=== PATIENT | male | born 1955 | race African-American/Black ===

== ENCOUNTER → 2019-05-03 11:55 | Outpatient (CLI) | payer OTHER, SELFPAY ==
--- NOTE | 2019-05-03 | DI.US.S_ITS ---
PROCEDURE: US ABDOMEN LIMITED INDICATIONS: CHRONIC VIRAL HEPATITIS C TECHNIQUE: Real-time focused scanning was performed of the abdomen, with image documentation. COMPARISON: [facility], , ABDOMEN LIMITED, 02/10/2017, 8:11. FINDINGS: Normal appearance to liver. No gallstones identified. Normal gallbladder wall. No pericholecystic fluid. Negative sonographic Calderon sign. No biliary dilatation. Normal pancreas. IMPRESSION: Normal appearance to liver. Dictated by: Mal Gonzales [facility] Interpreted: Donovan Prater MD on 05/03/2019 at 14:55 Approved by: Donovan Prater M.D. on 05/04/2019 at 11:26
== END ==
PROVIDERS: Family Provider Family Medicine; PCP Family Medicine; Visit Provider Internal Medicine Gastroenterology
DX: B18.2 Chronic viral hepatitis C (principal)
CPT/HCPCS: 76705

== ENCOUNTER 2020-06-20 17:42 | Emergency (ER) | payer OTHER, SELFPAY ==
[2020-06-20] VITALS (9 sets, daily range): BP systolic 157–204; BP diastolic 88–104; PULSE 61–68; RESP 13–19; TEMP 36.6; O2SAT 98–100; BMI 25.0
--- NOTE | 2020-06-20 17:49 | DI.RAD.S_ITS ---
PROCEDURE: XR CHEST 1V INDICATIONS: chest pain TECHNIQUE: One view of the chest was acquired. COMPARISON: None. FINDINGS: Surgical changes and devices: There is a disc prosthesis at C5-C6. Lungs and pleura: Lungs are clear. No pleural effusions or pneumothorax. Mediastinum: Mediastinal contours appear normal. Heart size is normal. Bones and chest wall: No suspicious bony lesions. Overlying soft tissues appear unremarkable. IMPRESSION: No acute cardiopulmonary disease. Dictated by: Angelique Lisa M.D. on 06/20/2020 at 19:08 Approved by: Angelique Lisa M.D. on 06/20/2020 at 19:09
--- NOTE | 2020-06-20 18:00 | ED_ITS ---
HPI - Chest Pain General Chief Complaint: Chest Pain Stated Complaint: chest tightness,left arm pain Time Seen by Provider: 06/20/20 17:57 Source: patient Mode of arrival: Ambulatory Limitations: no limitations History of Present Illness HPI narrative: This is a 64-year-old male comes to emergency department with co mplaint of chest pain most recent episode started today at 1:00 p.m.. Patient states he has been having intermittently for the past week. Has pain radiating to both arms, diaphoretic, denies any shortness of breath. No nausea or vomiting. No other GI or urinary symptoms. No swelling in his extremities. Patient does not have any known coronary artery disease. Patient does have a history of hepatitis-C which he recently completed treatment for. He is not currently taking any other medications. States his prior neck surgery carpal tunnel. Denies allergies to medication. Use THC intermittently. He is accompanied by his today. Related Data Allergies Allergy/AdvReac Type Severity Reaction Status Date / Time No Known Drug Allergies Allergy Verified 06/20/20 17:49 Review of Systems Review of Systems ROS Unobtainable: All systems reviewed & are unremarkable except as noted in HPI and below Patient History Social History Smoking Status: Current every day smoker Smoking Status: Current every day smoker tobacco type: cigarettes Substance Use Type: does not use Exam Narrative Exam Narrative: GENERAL: Alert and oriented x three, well-nourished, well- appearing male in mild distress. HEENT: Head normocephalic, atraumatic, EOMI, pupils reactive, face symmetric, moist mucous membranes NECK: Supple, full range of motion CARDIOVASCULAR: Regular rate and rhythm without murmurs, rubs or gallops. RESPIRATORY: Breath sounds equal bilaterally, no wheezes rales or rhonchi. ABDOMEN: Soft, nontender. Normoactive bowel sounds all 4 quadrants. No guarding or rebound, rigidity, no mass : No CVA tenderness EXTREMITIES: Normal range of motion, no clubbing or edema. Neurovascularly intact NEUROLOGICAL: Cranial nerves II through XII grossly intact. Moving all extremities SKIN: Warm, dry, no petechiae, no rashes or lesions. Initial Vital Signs Initial Vital Signs: Vital Signs Temperature 97.8 F 06/20/20 17:44 Pulse Rate 64 06/20/20 17:44 Respiratory Rate 16 06/20/20 17:44 Blood Pressure 204/104 H 06/20/20 17:44 Pulse Oximetry 100 06/20/20 17:44 Course Orders Ordered: ED Orders 06/20/20 17:49 XR chest 1V Stat EKG-12 Lead Stat 06/20/20 17:56 Complete Blood Count MAN DIFF Stat Comprehensive Metabolic Panel Stat Lipase Stat Partial Thromboplastin Time Stat Prothrombin Time INR Stat Troponin & CK Cardiac Panel Stat 06/20/20 18:04 COVID19 Stat Discontinued Medications Aspirin (Aspirin 81 Mg Chew Tab) 324 mg PO NOW ONE Stop: 06/20/20 17:58 Last Admin: 06/20/20 18:07 Dose: 324 mg Documented by: ARY Heparin Sodium (Porcine) (Heparin 5,000 Unit/Ml Vial) 4,000 unit IV NOW ONE Stop: 06/20/20 17:58 Last Admin: 06/20/20 18:06 Dose: 4,000 unit Documented by: ARY Heparin Sodium/Dextrose (Heparin Drip) 25,000 unit in 500 mls @ 18.942 mls/hr IV CONT MARIO; Protocol Last Admin: 06/20/20 18:06 Dose: 12 units/kg/hr, 18.942 mls/hr Documented by: ARY Nitroglycerin (Nitroglycerin 0.4 Mg Sl Tab) 0.4 mg SL [id number] PRN PRN Reason: pain Last Admin: 06/20/20 18:14 Dose: 0.4 mg Documented by: Admin: 06/20/20 18:11 Dose: 0.4 mg Documented by: Admin: 06/20/20 18:07 Dose: 0.4 mg Documented by: ARY Consultations Consultation #1: Spoke with Dr. Hendrix from [facility] who accepts for transfer for STEMI, EKG faxed. Starting ASA, nitro and heparin in Emergency department. Time: 18:04 Vital Signs Vital signs: Vital Signs - 8 hr 06/20/20 17:44 06/20/20 18:00 06/20/20 18:01 Temperature 97.8 F Pulse Rate 64 62 61 Respiratory Rate 16 14 13 Blood Pressure 204/104 H 185/102 H Pulse Oximetry 100 100 100 06/20/20 18:05 06/20/20 18:07 06/20/20 18:10 Temperature Pulse Rate 65 62 68 Respiratory Rate 13 17 Blood Pressure 185/102 H Pulse Oximetry 100 100 06/20/20 18:11 06/20/20 18:14 06/20/20 18:15 Temperature Pulse Rate 67 66 63 Respiratory Rate 15 19 Blood Pressure 166/100 H 166/100 H 157/88 H Pulse Oximetry 100 98 MDM - Chest Pain Lab Data Result diagrams: 06/20/20 17:56 06/20/20 17:56 Labs: Lab Results 06/20/20 06/20/20 06/20/20 Range/Units 17:56 17:56 17:56 WBC Cancelled RBC Cancelled Hgb Cancelled Hct Cancelled MCV Cancelled MCH Cancelled MCHC Cancelled RDW Cancelled Plt Count Cancelled Neut % (Auto) Cancelled Lymph % (Auto) Cancelled Greer % (Auto) Cancelled Eos % (Auto) Cancelled Baso % (Auto) Cancelled Neut # (Auto) Cancelled Lymph # (Auto) Cancelled Greer # (Auto) Cancelled Eos # (Auto) Cancelled Baso # (Auto) Cancelled Total Counted Seg Neutrophils % (38-70) % Band Neutrophils % (3-7) % Lymphocytes % (Manual) (25-45) % Monocytes % (Manual) (2-11) % Eosinophils % (Manual) (2-4) % Neutrophils # (Manual) (1669-2154) /uL RBC Morphology Anisocytosis PT 12.7 (10.1-12.7) SECONDS INR 1.1 (0.9-1.3) APTT 34 (26.4-36.2) SECONDS Sodium 140 (137-145) mmol/L Potassium 3.8 (3.4-5.1) mmol/L Chloride 104 (98-107) mmol/L Carbon Dioxide 31 (22-32) mmol/L BUN 16 (9-20) mg/dL Creatinine 1.13 (0.66-1.25) mg/dL Estimated GFR > 60.0 (>60) mL/min BUN/Creatinine Ratio 14.2 (6-22) Glucose 111 H (80-110) mg/dL Calcium 9.1 (8.4-10.2) mg/dL Total Bilirubin 0.3 (0.2-1.3) mg/dL AST 100 H (17-59) IU/L ALT 35 (<50) IU/L Alkaline Phosphatase 96 (38-126) U/L Total Creatine Kinase 804 H (55-170) U/L CK-MB (CK-2) 30.20 H (<2.37) ng/mL CK-MB (CK-2) Rel Index 3.8 (1.5-5.0) % Troponin I 2.040 H* (0.01-0.034) ng/mL Total Protein 8.0 (6.3-8.2) g/dL Albumin 4.3 (3.5-5.0) g/dL Globulin 3.7 (1.7-4.1) g/dL Albumin/Globulin Ratio 1.2 (1.0-2.8) Lipase 179 (23-300) U/L COVID-19 PCR (Negative) 06/20/20 06/20/20 06/20/20 Range/Units 17:56 17:56 18:04 WBC 8.8 RBC 4.35 L Hgb 13.3 L Hct 39.7 L MCV 91.3 MCH 30.7 MCHC 33.6 RDW 14.9 H Plt Count 153 Neut % (Auto) Lymph % (Auto) Greer % (Auto) Eos % (Auto) Baso % (Auto) Neut # (Auto) Lymph # (Auto) Greer # (Auto) Eos # (Auto) Baso # (Auto) Total Counted 100 Seg Neutrophils % 79.0 H (38-70) % Band Neutrophils % 2.0 L (3-7) % Lymphocytes % (Manual) 11.0 L (25-45) % Monocytes % (Manual) 6.0 (2-11) % Eosinophils % (Manual) 2.0 (2-4) % Neutrophils # (Manual) 7128 H (8995-3550) /uL RBC Morphology Not Reportable Anisocytosis 1+ H PT (10.1-12.7) SECONDS INR (0.9-1.3) APTT (26.4-36.2) SECONDS Sodium Cancelled (137-145) mmol/L Potassium Cancelled (3.4-5.1) mmol/L Chloride Cancelled (98-107) mmol/L Carbon Dioxide Cancelled (22-32) mmol/L BUN Cancelled (9-20) mg/dL Creatinine Cancelled (0.66-1.25) mg/dL Estimated GFR Cancelled (>60) mL/min BUN/Creatinine Ratio Cancelled (6-22) Glucose Cancelled (80-110) mg/dL Calcium Cancelled (8.4-10.2) mg/dL Total Bilirubin Cancelled (0.2-1.3) mg/dL AST Cancelled (17-59) IU/L ALT Cancelled (<50) IU/L Alkaline Phosphatase Cancelled (38-126) U/L Total Creatine Kinase Cancelled (55-170) U/L CK-MB (CK-2) Cancelled (<2.37) ng/mL CK-MB (CK-2) Rel Index Cancelled (1.5-5.0) % Troponin I Cancelled (0.01-0.034) ng/mL Total Protein Cancelled (6.3-8.2) g/dL Albumin Cancelled (3.5-5.0) g/dL Globulin Cancelled (1.7-4.1) g/dL Albumin/Globulin Ratio Cancelled (1.0-2.8) Lipase (23-300) U/L COVID-19 PCR Negative (Negative) Imaging Data Chest x-ray: Attestation: I personally reviewed and interpreted this imaging study as follows: My Impression: cardiomegaly, no acute process otherwise appreciated. ECG Data Attestation: I personally reviewed and interpreted this ECG as follows: Interpretation: Normal sinus rhythm. Patient has depression in 1 and aVL, some mild depression in V5 V6. He does have elevation in leads 3 and AVF. [facility] Narrative Medical decision making narrative: This is a 64-year-old male comes in with complaint of chest pain. Patient has ST elevation with reciprocal changes on EKG. STEMI is called. Spoke with Dr. Hendrix at [facility] who accepts for transfer. Aspirin, heparin and nitro were given. Patient's pressure improved but chest pain had minimal to no improvement. Labs are currently pending, chest x-ray was reviewed patient has cardiomegaly but no widening of the mediastinum. Patient was swabbed for covid. Critical Care Time Critical Care Time Critical Care Time: Yes Total Critical Care Time: 35 Attestation: The high probability of a clinically significant, sudden or life threatening deterioration of the [cardiac] system(s) required my full and direct attention, intervention and personal management. The aggregate critical care time was [] minutes. This time is in addition to time spent performing reported procedures but includes the following: [x] Data Review and interpretation [x] Patient assessment and monitoring of vital signs [x] Documentation [x] Medication orders and management Discharge Plan Departure Patient Disposition: [facility] Clinical Impression: ST elevation [place] (STEMI) Referrals: Morro Benoit MD [Primary Care Provider] -
[2020-06-20] MEDS: HEPARIN 5,000 UNIT/ML VIAL 4000 UNIT IV (18:06)
[2020-06-20] MEDS: HEPARIN DRIP 25,000 UNIT/500 ML IV.SOLN 18.942 UNIT IV (18:06)
[2020-06-20] MEDS: ASPIRIN 81 MG CHEW TAB 324 MG PO (18:07)
[2020-06-20] MEDS: NITROGLYCERIN 0.4 MG SL TAB SL ×3 (18:07→18:14)
[2020-06-20 18:13] LABS: Hematocrit 39.7 % (41-53); Hemoglobin 13.3 g/dL (13.5-17.5); Mean Corpuscular HGB Conc 33.6 % (30-36); Mean Corpuscular Hemoglobin 30.7 PG (26-34); Mean Corpuscular Volume 91.3 fL (80-100); Platelet Count 153 X10^3/uL (150-400); Red Blood Cell Count 4.35 X10^6/uL (4.5-5.9); Red Cell Distribution Width 14.9 % (11.6-14.8); White Blood Cell Count 8.8 X10^3/uL (4.5-11.0)
[2020-06-20 18:21] LABS: INR 1.1 (0.9-1.3); Prothrombin Time 12.7 SECONDS (10.1-12.7)
[2020-06-20 18:23] LABS: PTT Partial Thromboplastin Tim 34 SECONDS (26.4-36.2)
[2020-06-20 18:25] LABS: Alanine Aminotransferase 35 IU/L (<50); Albumin 4.3 g/dL (3.5-5.0); Albumin Globulin Ratio 1.2 (1.0-2.8); Alkaline Phosphatase 96 U/L (38-126); Aspartate Aminotransferase 100 IU/L (17-59); BUN Creatinine Ratio 14.2 (6-22); Bilirubin Total 0.3 mg/dL (0.2-1.3); Blood Urea Nitrogen 16 mg/dL (9-20); Calcium 9.1 mg/dL (8.4-10.2); Carbon Dioxide 31 mmol/L (22-32); Chloride 104 mmol/L (98-107); Creatine Kinase 804 U/L (55-170); Estimated Glomerular Filt Rate > 60.0 mL/min (>60); Globulin 3.7 g/dL (1.7-4.1); Glucose 111 mg/dL (80-110); HEMOLYSIS < 15 (0-50); Lipase 179 U/L (23-300); Potassium 3.8 mmol/L (3.4-5.1); Sodium 140 mmol/L (137-145)
[2020-06-20 18:40] LABS: CKMB % Relative Index 3.8 % (1.5-5.0)
[2020-06-20 18:46] LABS: COVID19 -Nasal RAPID Negative (Negative)
[2020-06-20 19:20] LABS: Total Cells Counted 100
[2020-06-20 19:22] LABS: Neutrophils Absolute Manual 7128 /uL (3000-5900)
[2020-06-20 19:23] LABS: Anisocytosis 1+
== END 2020-06-20 18:21 | disposition short-term general hospital (02) ==
PROVIDERS: Emergency Medicine; Emergency Provider Emergency Medicine; Family Provider Family Medicine; PCP Family Medicine
DX: I21.3 ST elevation (STEMI) myocardial infarction of unspecified site (principal); Z20.828 Contact with and (suspected) exposure to other viral communicable diseases
CPT/HCPCS: 36415; 71045; 80053; 82550; 82553; 83690; 84484; 85025; 85610; 85730; 87635; 93005; 93010; 96374; 96375; 99283; 99291; J1644

== ENCOUNTER 2021-02-20 08:30 | Outpatient (RCR) | payer OTHER, SELFPAY ==
--- OUTSIDE RECORDS SUMMARY | 2020-10-22 08:40 | XMS_ITS | Referral Summary ---
:[address] [facility] Address [address] [place] [address] Care Team Providers Name Role Phone MD Cong Primary Care Provider Reason for Referral Hospital - Outpatient (Routine) Status Reason Specialty Diagnoses / Procedures Referred By C ontact Referred To Contact Closed Cardiology Diagnoses S/P drug eluting coronary stent placement [facility] [address] [place] [address] [address] [id number] [place], [place] Phone: [phone] Phone: Electronically signed by Davis Madrid MD at Encounter Details Date Type Department Care Team Description 10/09/2020 Telephone [facility] Davis Madrid MD Cardiology [address] [place], [place] [phone] [place], [place] [id number] Allergies No Known Active Allergiesdocumented as of this encounter (statuses as of 10/21/2020) Medications Medication Sig Dispensed Refills Start Date End Date Status acetaminophen Take 650 mg by 0 A ctive (TYLENOL) 325 mg mouth daily tablet aspirin 81 mg chewable Take 1 tablet 30 tablet 11 06/23/2020 Active tablet (81 mg total) by mouth daily nitroglycerin Place 1 tablet 90 tablet 0 06/22/2020 06/22/2021 Active (NITROSTAT) 0.4 mg SL (0.4 mg total) tabletIndications: under the chest pain tongue every 5 (five) minutes as needed for chest pain Indications: chest pain If more than one dose required, call 911 or go to ER metoprolol tartrate Take 1 tablet 180 tablet 4 08/08/202010/05 Active (LOPRESSOR) 25 mg (25 mg total) tabletIndications: by mouth 2 Coronary artery (two) times a disease involving [place] coronary artery of [place] heart without angina pectoris lisinopriL (PRINIVIL) Take 1 tablet 90 tablet 4 08/08/2020 Active 10 mg (10 mg total) tabletIndications: by mouth daily Coronary artery disease involving [place] coronary artery of [place] heart without angina pectoris clopidogreL (PLAVIX) Take 1 tablet 90 tablet 4 08/08/202010/05 Active 75 mg (75 mg total) tabletIndications: by mouth daily Coronary artery disease involving [place] coronary artery of [place] heart without angina pectoris atorvastatin (LIPITOR) Take 1 tablet 90 tablet 4 08/08/2020 Active 40 mg (40 mg total) tabletIndications: by mouth Coronary artery nightly disease involving [place] coronary artery of [place] heart without angina pectoris documented as of this encounter (statuses as of 10/21/2020) Active Problems Problem Noted Date Coronary artery disease involving [place] coronary win ry of [place] heart 08/08/2020 without angina pectoris Last Assessment & Plan: Coronary artery disease is newly identified in 06/2020 with inferolateral STEMI. Continue current treatment regimen. Continue current medications. Cardiac status will be reassessed in [address] [facility] elevation myocardial infarction involving left circ umflex coronary 06/22/2020 artery S/P drug eluting coronary stent placement 06/22/2020 Last Assessment & Plan: DAPT for 1 year. RTC in 6 months. Tobacco use disorder 06/22/2020 Microcytic anemia 06/22/2020 Chronic hepatitis C virus infection 02/02/2017 documented as of this encounter (statuses as of 10/21/2020) Social History Tobacco Use Types Packs/Day Years Used Date Light Tobacco Smoker Cigarettes 0.75 30 Smokeless Tobacco: Never Used Comments: Currently smokes 2 Black Milds a day. Alcohol Use Drinks/Week oz/Week Comments Yes Alcohol Habits Answer Date Recorded How often do you have a drink containing alcohol? Monthly or less 06/21/2020 How many drinks containing alcohol do you have on a Not aske d 06/21/2020 typical day when you are drinking? How often do you have six or more drinks on one Not asked 06/21/2020 occasion? Sex Assigned at Date Recorded Not on file Job Start Date Occupation Industry Not on file Not on file Not on file documented as of this encounter Miscellaneous Notes Telephone Encounter - Erica Ortiz - 10/21/2020 1:26 PM PDTI called [facility] and they have what they need for him. His auth was approved and they have that information. Telephone Encounter - Joan Koch - 10/16/2020 9:14 AM PDTAmanda calling from [facility] requesting update on Referral and Auth with [facility]. He is currently on the schedule for 10/29, she is concerned about having to reschedule him. Please follow up with her at [phone]. Thank you elephone Encounter - Aracely Kimble - 10/09/2020 1:16 PM PDTReceived cardiac rehab form. Emailed to Kiana documented in this encounter Plan of Treatment Scheduled Referrals Name Type Priority Associated Order Schedule Diagnoses XTRNL Referral to Outpatient Referral Routine S/P drug eluting Ordered: Cardiac Rehabilitation coronary stent placement documented as of this encounter Implants Implanted Type Area Ear Pull Machine Operator Device Identifier Shelf Exp iration Model / Date Serial / L ot Stent Xience Ute 2.50*15 - [id number] / Implanted: Qty: 1 on 06/20/2020 at [facility] / documented as of this encounter Visit Diagnoses Diagnosis S/P drug eluting coronary stent placemen t - Primary documented in this encounter Insurance Payer Benefit Plan / Subscriber ID Effective Dates Phone Addre ss Type Group [facility] [id number] 2019-Present [employer] [facility] documented as of this encounter Advance Directives Documents on File Type Date 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
== END 2021-02-20 11:55 ==
LOC: CAR 08:30
PROVIDERS: Family Provider Family Medicine; PCP Family Medicine; Referring Provider Internal Medicine Cardiovascular Disease; Visit Provider Internal Medicine Cardiovascular Disease
DX: Z95.5 Presence of coronary angioplasty implant and graft (principal); I21.21 ST elevation (STEMI) myocardial infarction involving left circumflex coronary artery
CPT/HCPCS: 93798

== ENCOUNTER → 2021-05-09 11:24 | Outpatient (CLI) | payer OTHER, SELFPAY ==
[2021-05-09 13:03] LABS: COVID19 -Nasal RAPID Negative (Negative)
== END ==
PROVIDERS: Family Provider Family Medicine; PCP Family Medicine; Visit Provider Physician Assistant
DX: Z20.822 Contact with and (suspected) exposure to COVID-19 (principal)
CPT/HCPCS: 87635

== ENCOUNTER → 2021-05-12 08:59 | Outpatient (CLI) | payer OTHER, SELFPAY ==
--- NOTE | 2021-05-13 13:51 | DI.NM.S_ITS ---
PROCEDURE PERFORMED: Exercise treadmill, converted to pharmacologic vasodilator stress and rest perfusion study with gating to assess ejection fraction and regional wall motion. DATE OF SERVICE: May 12, 2021 ORDERING PROVIDER: Davis Madrid Jr MD INDICATIONS: The patient is a 65-year-old male with a history of left circumflex revascularization, who now presents with progressive exertional angina. CARDIAC STRESS: The patient was initially stressed by treadmill and was able to complete 6 minutes 20 seconds of a standard Demetrio protocol, achieving 6.2 METS suggesting moderately reduced exercise capacity with an MICAH of +28%. He had a blunted heart rate response, achieving a maximum heart rate of 107 BPM (69% of his predicted maximum), but had a normal blood pressure response. He developed his usual chest discomfort after 3 minutes of exercise. His resting ECG showed sinus rhythm with inferolateral ST-segment abnormality that remained unchanged with stress. He had frequent PACs but no complex ectopy. Because of the inability to reach his target heart rate, he was given regadenoson 0.4 mg, augmented with low level walking. He had a normal hemodynamic response, again without any significant ST-segment shifts or concerning arrhythmias. Per protocol, he was injected with 26.5 millicuries of technetium-99m Myoview and was imaged 15 minutes later using a gated SPECT acquisition protocol. The day prior he had been injected with 25.1 millicuries of technetium-99m Myoview and was imaged 30 minutes later, again using a gated SPECT acquisition protocol. FINDINGS: RAW DATA: There is fairly good myocardial tracer uptake. Lung/heart ratio is normal at 0.32. TID ratio is normal at 1.03. QUANTITATED GATED SPECT: Post-stress ejection fraction is estimated at 60% without any obvious focal wall motion abnormality although image quality is slightly poor. Resting ejection fraction is calculated at 51% although visually appears quite similar to that of the post-stress ejection fraction. Left ventricular volumes are mildly increased with a resting end-diastolic volume of 173 mL. MYOCARDIAL PERFUSION IMAGING: Post-stress supine images show a fairly extensive moderate perfusion defect in the proximal to mid inferior, inferolateral, and lateral [place], extending somewhat into the anterolateral wall. This defect persists on the prone images suggesting it reflects a true perfusion defect. The resting images again show a mild perfusion defect in the proximal inferolateral segment but it appears significantly improved, being considerably smaller and less severe in intensity compared to the post- stress images. IMPRESSION: 1. Abnormal myocardial perfusion study. 2. Predominantly reversible but mildly fixed inferior, inferolateral, and lateral perfusion defect suggesting probable significant ischemia in the left circumflex distribution, possibly with some degree of intermixed nontransmural infarction. 3. Normal left ventricular systolic function without any obvious focal wall motion abnormality. Left ventricular volumes are mildly increased. 4. Moderately reduced exercise capacity with a mildly blunted chronotropic response with provokable chest discomfort, but no ECG changes of ischemia. Uziel Candelario - RS/ignacia/cs doc#: [id number]/job#: [id number] dd: 05/13/2021 13:11:00 dt: 05/13/2021 13:41:00 DICTATING MD/COPIES TO: Miller Kaminski MD; Davis Madrid Jr MD COPIES MNE: [id number];
== END ==
PROVIDERS: Family Provider Family Medicine; PCP Family Medicine; Referring Provider Internal Medicine Cardiovascular Disease; Visit Provider Internal Medicine Cardiovascular Disease
DX: I25.118 Atherosclerotic heart disease of native coronary artery with other forms of angina pectoris (principal); I34.0 Nonrheumatic mitral (valve) insufficiency; I77.89 Other specified disorders of arteries and arterioles
CPT/HCPCS: 78452; 93017; A9502; J2785

== ENCOUNTER → 2021-05-13 09:14 | Outpatient (CLI) | payer OTHER, SELFPAY ==
--- NOTE | 2021-05-13 | DI.ECHO.S_ITS ---
[facility] +---------+ : : [address] : : : : [phone] : : : : Phone: [phone]+ Echocardiogram Report + + :Name: NJ GATICA Study Date: 05/13/2021 Height: 70 in : :[facility] ReadingLocation: Weight: 172 lb : : Gender: Male BSA: 2.0 m2 : :: 1955 Age: 65 yrs BP: 160/90 mmHg: :Reason For Study: ATHEROSCLEROTIC HEART DISEASE OF [place] : :CORONARY ARTERY : :Ordering Physician: DOM, : :DAVIS Performed By: Shaina Flores : :Referring: DAVIS MADRID : + + Interpretation Summary There is mild-moderate concentric left ventricular hypertrophy. Left ventricular systolic function is normal. The ejection fraction is estimated to be 55-60%. Diastolic parameters suggest probable normal left ventricular diastolic function and normal filling pressures. The right ventricle is normal in size and function. Pulmonary artery pressures cannot be estimated because of the lack of a measurable TR jet velocity but the IVC suggests a CVP of around 8 mmHg. The left atrium is moderately dilated. The right atrium is mildly dilated. There is mild mitral regurgitation. There is no other significant valvular heart disease. The ascending aorta is mildly enlarged. Procedure: A two-dimensional transthoracic echocardiogram with color flow and Doppler was performed. The study quality was technically good. Comparison is made with the echocardiogram of 06/21/2020. The patient was in sinus bradycardia with heart rates between 49-72 bpm during the exam. Left Ventricle: The left ventricle is normal in size. There is mild-moderate concentric left ventricular hypertrophy. Left ventricular systolic function is normal. The ejection fraction is estimated to be 55-60%. Proximal inferior and inferolateral wall segments are hypokinetic. Diastolic parameters suggest probable normal left ventricular diastolic function and normal filling pressures. Right Ventricle: The right ventricle is normal in size and function. Atria: The left atrium is moderately dilated. The right atrium is mildly dilated. There is no Doppler evidence for an interatrial shunt. Mitral Valve: The mitral valve is normal in structure and function. There is mild mitral regurgitation. Aortic Valve: The aortic valve is trileaflet. The aortic valve opens well. There is no aortic valve stenosis. There is trace aortic regurgitation. Tricuspid Valve: The tricuspid valve is normal in structure and function. Pulmonary artery pressures cannot be estimated because of the lack of a measurable TR jet velocity but the IVC suggests a CVP of around 8 mmHg. Pulmonic Valve: The pulmonic valve leaflets are thin and pliable; valve motion is normal. There is trace pulmonic regurgitation. There is no other significant valvular heart disease. Great Vessels: The aortic root is normal size. The ascending aorta is mildly enlarged. The IVC is dilated (diameter is greater than 2.1 cm) yet it collapses greater than 50% with a sniff. This suggests a right atrial pressure of 8 mm Hg. Pericardium/ Pleura There is no pericardial effusion. There is no pleural effusion. MMode/2D Measurements & Calculations LVIDd: 5.1 cm LVOT diam: 2.1 cm LVIDs: 4.1 cm Ao root diam: 3.3 cm FS: 20.6 % asc Aorta Diam: 3.7 cm IVSd: 1.5 cm LVPWd: 1.1 cm LV gunderson. diameter/BSA (cm/m^2): 2.6 LV sys. diameter/BSA (cm/m^2): 2.1 LA A2 area: 27.1 cm2 RA long axis: 5.8 cm LA A4 area: 24.3 cm2 RA area: 22.7 cm2 LA length (vol): 5.8 cm RA vol: 75.1 ml LA vol: 95.6 ml RA : 38.4 ml/m2 LA vol index: 48.8 ml/m2 IVC diam: 2.1 cm RVD1 (basal): 3.6 cm TAPSE: 2.7 cm Doppler Measurements & Calculations Ao V2 max: 164.5 cm/sec LVOT Max Felix: 97.1 cm/sec Ao V2 mean: 108.1 cm/sec LV V1 max P.8 mmHg Ao max P.8 mmHg LV V1 VTI: 21.1 cm Ao mean P.4 mmHg OLLIE(I,D): 2.3 cm2 Ao V2 VTI: 31.3 cm OLLIE(V,D): 2.0 cm2 sev ratio: 0.68 OLLIE indexed to BSA (cm^2/m^2): 1.2 MV E max felix: 99.0 cm/sec PA V2 max: 101.7 cm/sec MV A max felix: 83.8 cm/sec PA V2 mean: 73.5 cm/sec MV E/A: 1.2 PA mean P.4 mmHg Med Peak E' Felix: 5.7 cm/sec PA pr(Accel): 20.8 mmHg E/E' med: 17.5 Lat Peak E' Felix: 8.7 cm/sec E/E' lat: 11.4 E/e' average: 14.4 MV dec time: 0.21 sec SV(LVOT): 73.4 ml Reading Physician:06:19 PM
== END ==
PROVIDERS: Family Provider Family Medicine; PCP Family Medicine; Referring Provider Internal Medicine Cardiovascular Disease; Visit Provider Internal Medicine Cardiovascular Disease
DX: I34.0 Nonrheumatic mitral (valve) insufficiency (principal); I77.89 Other specified disorders of arteries and arterioles; I25.10 Atherosclerotic heart disease of native coronary artery without angina pectoris
CPT/HCPCS: 93306

== ENCOUNTER 2023-03-25 15:35 | Emergency (ER) | payer OTHER, SELFPAY ==
[2023-03-25 15:42] VITALS: BP 178/110; PULSE 74; RESP 16; O2SAT 95
[2023-03-25 15:53] VITALS: BP 182/118; PULSE 83; RESP 12; O2SAT 97; BMI 24.7
[2023-03-25 16:00] VITALS: BP 182/105; PULSE 81; RESP 16; O2SAT 97
--- NOTE | 2023-03-25 16:01 | ED.CHESTPAIN ---
HPI - Chest Pain General Chief Complaint: Chest Pain Stated Complaint: Chest Pain Time Seen by Provider: 03/25/23 15:57 Source: EMS Mode of arrival: Ambulatory History of Present Illness HPI narrative: Patient brought in by ambulance from work for chest pain patient had STEMI last year and had stent placed. Patient sees Dr. Madrid with [facility]. patient has had off and on chest pain for the past 1 week and worsened today at work. Patient given aspirin and nitroglycerin by EMS. Patient states pain has improved. EKG does show acute NV. Lateral leads ST elevation with reciprocal changes in the inferior leads. Code STEMI activated. Patient needs to be transferred to [facility] Emergency Department and cardiac catheterization lab. Related Data Allergies Allergy/AdvReac Type Severity Reaction Status Date / Time No Known Drug Allergies Allergy Verified 06/20/20 17:49 Review of Systems Review of Systems Narrative: GENERAL: negative chills, fatigue, malaise, fever, sweats. HEENT: negative sinus pain, ear pain, sore throat RESPIRATORY: negative dyspnea, cough CARDIOVASCULAR: Positive chest pain, negative palpitations GASTROINTESTINAL: negative nausea, vomiting, abdominal pain : negative dysuria, frequency, hematuria MUSCULOSKELETAL: negative muscle or bony pain SKIN: negative rash, skin lesions NEUROLOGIC: negative weakness, numbness ROS Unobtainable: All systems reviewed & are unremarkable except as noted in HPI and below Patient History Social History Smoking Status: Current every day smoker Smoking Status: Current every day smoker tobacco type: cigarettes Substance Use Type: does not use Exam Narrative Exam Narrative: GENERAL: in no distress, not toxic not dyspneic HEAD: Normocephalic. EYES: Pupils equal round ENT: Mucous membranes moist. NECK: Trachea midline. CARDIOVASCULAR: Regular rate and rhythm RESPIRATORY: Clear to auscultation. Breath sounds equal bilaterally. No wheezes, rales, or rhonchi. GASTROINTESTINAL: Abdomen soft, non-tender EXTREMITIES: No gross deformities. BACK: No flank tenderness. NEURO: AOx4. Clear speech. No altered mental status. SKIN: Warm and dry PSYCH: Not anxious, is cooperative Initial Vital Signs Initial Vital Signs: Vital Signs Pulse Rate 74 03/25/23 15:42 Respiratory Rate 16 03/25/23 15:42 Blood Pressure 178/110 H 03/25/23 15:42 Pulse Oximetry 95 03/25/23 15:42 Oxygen Delivery Method Room Air 03/25/23 15:42 Course Orders Ordered: Discontinued Medications Heparin Sodium (Porcine) (Heparin 5,000 Unit/Ml Vial) 4,000 unit IV NOW ONE Stop: 03/25/23 15:58 Last Admin: 03/25/23 16:10 Dose: 4,000 unit Documented By: ADELINE Heparin Sodium/Dextrose (Heparin Drip) 25,000 unit in 500 mls @ 18.724 mls/hr IV CONT MARIO; Protocol Last Titration: 03/25/23 16:25 Dose: Infused Documented By: MARCOS Co-signed By: CHON Admin: 03/25/23 16:15 Dose: 12 units/kg/hr, 18.724 mls/hr Documented By: ADELINE Co-signed By: MARCOS Sodium Chloride (Normal Saline 0.9%) 1,000 mls @ 150 mls/hr IV CONT MARIO Last Infusion: 03/25/23 16:26 Dose: Infused Documented By: Admin: 03/25/23 16:08 Dose: 150 mls/hr Documented By: ADELINE Nitroglycerin (Nitroglycerin) 50 mg in 250 mls @ 1.5 mls/hr IV TITRATE MARIO; Protocol Last Titration: 03/25/23 16:25 Dose: Infused Documented By: Admin: 03/25/23 16:14 Dose: 5 mcg/min, 1.5 mls/hr Documented By: ADELINE Metoprolol Tartrate (Metoprolol Tartrate 5 Mg/5 Ml Inj) 5 mg IV NOW ONE Stop: 03/25/23 15:58 Last Admin: 03/25/23 16:05 Dose: 5 mg Documented By: ADELINE Vital Signs Vital signs: Vital Signs - 8 hr 03/25/23 15:53 03/25/23 16:14 03/25/23 16:09 Pulse Rate 83 76 78 Respiratory Rate 12 15 Blood Pressure 182/118 H 177/91 H 177/91 H Pulse Oximetry 97 97 Oxygen Delivery Method Room Air Room Air MDM - Chest Pain Lab Data 03/25/23 16:00 03/25/23 16:00 Labs: Lab Results 03/25/23 Range/Units 16:00 WBC 6.1 (4.5-11.0) X10^3/uL RBC 4.25 L (4.5-5.9) X10^6/uL Hgb 13.1 L (13.5-17.5) g/dL Hct 39.3 L (41-53) % MCV 92.5 (80-100) fL MCH 30.9 (26-34) PG MCHC 33.4 (30-36) % RDW 15.3 H (11.6-14.8) % Plt Count 138 L (150-400) X10^3/uL Neut % (Auto) 71.6 (50-75) % Lymph % (Auto) 19.1 L (25-40) % Pettis % (Auto) 7.9 (3-14) % Eos % (Auto) 0.6 L (2-4) % Baso % (Auto) 0.8 (0-2) % Neut # (Auto) 4400 (4050-8401) /uL Lymph # (Auto) 1200 (8420-1833) /uL Pettis # (Auto) 500 (0-900) /uL Eos # (Auto) 0 (0-450) /uL Baso # (Auto) 0 (0-100) /uL PT 14.0 H (10.1-12.7) SECONDS INR 1.2 (0.9-1.3) APTT 36 (26-36) SECONDS Sodium 138 (137-145) mmol/L Potassium 3.7 (3.4-5.1) mmol/L Chloride 103 (98-107) mmol/L Carbon Dioxide 28 (22-32) mmol/L BUN 15 (9-20) mg/dL Creatinine 1.34 H (0.66-1.25) mg/dL Estimated GFR 58 L (>60) mL/min BUN/Creatinine Ratio 11.2 (6-22) Glucose 116 H (80-110) mg/dL Calcium 8.9 (8.4-10.2) mg/dL Total Bilirubin 0.4 (0.2-1.3) mg/dL AST 29 (17-59) IU/L ALT 20 (<50) IU/L Alkaline Phosphatase 98 (38-126) U/L Total Creatine Kinase 177 H (55-170) U/L Troponin I 0.047 H (0.01-0.034) ng/mL Total Protein 7.2 (6.3-8.2) g/dL Albumin 4.0 (3.5-5.0) g/dL Globulin 3.2 (1.7-4.1) g/dL Albumin/Globulin Ratio 1.3 (1.0-2.8) MDM Narrative Medical decision making narrative: Patient brought in by ambulance from work for chest pain patient had STEMI last year and had stent placed. Patient sees Dr. Madrid with [facility]. patient has had off and on chest pain for the past 1 week and worsened today at work. Patient given aspirin and nitroglycerin by EMS. Patient states pain has improved. EKG does show acute NV. Lateral leads ST elevation with reciprocal changes in the inferior leads. Code STEMI activated. Patient needs to be transferred to [facility] Emergency Department and cardiac catheterization lab. After history and exam EKG, transfer [facility] emergency department. CBC CMP troponin chest x-ray nitroglycerin drip metoprolol MDM CC: Chest pain Complicating co-morbidities: History of STEMI Data collected from: Patient Medical records reviewed: June 20, 2020 STEMI ER records here Differential considered: Includes but not limited to STEMI Exam documented above, pertinent findings include: EKG ST-elevation Lab Test results independently reviewed as above. Pertinent findings: Labs pending, EMS services here to transfer patient WBC 6.1 hemoglobin 13.[address] E[address] ST-elevation lateral leads reciprocal changes inferiorly Imaging studies independently reviewed: Not indicated at this time, needs immediate heart catheterization Consultations: 4:[address] Avila, [facility] emergency department, she will accept patient 4:11 p.m.. Spoke with [facility] sales and leasing agent, dr blankenship, instructs to send the patient immediately over for heart catheterization Treatments: Heparin nitroglycerin aspirin normal saline Re-evaluations: 4:12 p.m.. Patient does understand need for transfer immediately for heart catheterization, blood pressure is improving. Patient's chest pain is improving with nitroglycerin Discussion: Appropriate for transfer immediate heart catheterization. Diagnosis: Acute STEMI Critical Care Time Critical Care Time Attestation: Critical Care Time 35 minutes: Critical care time is separate from other billable procedures. This critical care time includes consultation with family and other consulting doctors, review of records, and interpretation of data from labs, EKGs, etc. Discharge Plan Departure Patient Disposition: [facility] Clinical Impression: ST elevation myocardial infarction (STEMI) Referrals: Zeke Gar MD [Primary Care Provider] -
[2023-03-25] MEDS: METOPROLOL TARTRATE 5 MG/5 ML INJ IV (16:05)
[2023-03-25] MEDS: SODIUM CHLORIDE 0.9% 1,000 ML 150 ML IV (16:08)
[2023-03-25 16:09] VITALS: BP 177/91; PULSE 78; RESP 15; O2SAT 97
[2023-03-25 16:10] LABS: Add Manual Diff / Slide Review NO; Basophils Absolute Auto 0 /uL (0-100); Basophils Percent Auto 0.8 % (0-2); Eosinophils Absolute Auto 0 /uL (0-450); Eosinophils Percent Auto 0.6 % (2-4); Hematocrit 39.3 % (41-53); Hemoglobin 13.1 g/dL (13.5-17.5); Lymphocytes Absolute Auto 1200 /uL (1100-4500); Lymphocytes Percent Auto 19.1 % (25-40); Mean Corpuscular HGB Conc 33.4 % (30-36); Mean Corpuscular Hemoglobin 30.9 PG (26-34); Mean Corpuscular Volume 92.5 fL (80-100); Monocytes Absolute Auto 500 /uL (0-900); Monocytes Percent Auto 7.9 % (3-14); Neutrophils Absolute Auto 4400 /uL (1500-7000); Neutrophils Percent Auto 71.6 % (50-75); Platelet Count 138 X10^3/uL (150-400); Red Blood Cell Count 4.25 X10^6/uL (4.5-5.9); Red Cell Distribution Width 15.3 % (11.6-14.8); White Blood Cell Count 6.1 X10^3/uL (4.5-11.0)
[2023-03-25] MEDS: HEPARIN 5,000 UNIT/ML VIAL 4000 UNIT IV (16:10)
[2023-03-25 16:14] VITALS: BP 177/91; PULSE 76
[2023-03-25] MEDS: NITROGLYCERIN 50 MG/250 ML INFUS..BTL IV (16:14)
[2023-03-25] MEDS: HEPARIN DRIP 25,000 UNIT/500 ML IV.SOLN 18.724 UNIT IV (16:15)
[2023-03-25 16:20] LABS: INR 1.2 (0.9-1.3)
[2023-03-25 16:22] LABS: PTT Partial Thromboplastin Tim 36 SECONDS (26-36)
--- NOTE | 2023-03-25 16:26 | PC.NURSE ---
Nitroglycerin, Heparin, and Normal saline drips continued in transport via [facility]. Report given to [facility] for transport. Report also given to [facility]ENNY.
[2023-03-25 16:27] VITALS: BP 160/76; PULSE 77; RESP 17; O2SAT 99
[2023-03-25 16:33] LABS: Alanine Aminotransferase 20 IU/L (<50); Albumin Globulin Ratio 1.3 (1.0-2.8); Alkaline Phosphatase 98 U/L (38-126); Aspartate Aminotransferase 29 IU/L (17-59); BUN Creatinine Ratio 11.2 (6-22); Bilirubin Total 0.4 mg/dL (0.2-1.3); Blood Urea Nitrogen 15 mg/dL (9-20); Calcium 8.9 mg/dL (8.4-10.2); Carbon Dioxide 28 mmol/L (22-32); Chloride 103 mmol/L (98-107); Creatine Kinase 177 U/L (55-170); Estimated Glomerular Filt Rate 58 mL/min (>60); Globulin 3.2 g/dL (1.7-4.1); Glucose 116 mg/dL (80-110); HEMOLYSIS < 15 (0-50); Potassium 3.7 mmol/L (3.4-5.1); Sodium 138 mmol/L (137-145); Total Protein 7.2 g/dL (6.3-8.2)
[2023-03-25 16:44] LABS: Troponin I 0.047 ng/mL (0.01-0.034)
== END 2023-03-25 16:28 | disposition short-term general hospital (02) ==
PROVIDERS: Emergency Provider Emergency Medicine; Family Provider Family Medicine; PCP Family Medicine
DX: I21.3 ST elevation (STEMI) myocardial infarction of unspecified site (principal); F17.200 Nicotine dependence, unspecified, uncomplicated
CPT/HCPCS: 36415; 80053; 82550; 84484; 85025; 85610; 85730; 93005; 96374; 96375; 96376; 99284; 99291; J1644

== ENCOUNTER → 2023-09-29 09:41 | Outpatient (CLI) | payer MEDICARE, OTHER, SELFPAY ==
--- NOTE | 2023-09-29 09:46 | DI.NM.S_ITS ---
PROCEDURE: NM WAI PERF SPECT R&S PHARM Rest and pharmacological stress myocardial perfusion SPECT with gated imaging and ejection fraction RADIOPHARMACEUTICAL: 10.4 mCi Tc-99m tetrafosmin IV at rest and 26.1 mCi Tc-99m tetrafosmin IV at peak effect of pharmacological stress. [id number] was performed. INDICATIONS: Presence of coronary angioplasty implant and graft TECHNIQUE: Radiopharmaceutical was injected at peak stress test, and also at rest. SPECT images were obtained. SPECT myocardial perfusion images were displayed in short axis, horizontal long axis, and vertical long axis views. Gated images were reviewed using [employer] software. COMPARISON: None. CARDIAC STRESS: A pharmacologic stress test was performed under the supervision of an attending staff, using an infusion of lexiscan 0.4mg IV X1. Hemodynamic data: There is normal blood pressure and heart rate response to pharmacologic stress. Symptoms: The patient had chest pain with exercise and with lexiscan. Aminophylline: none EKG: No diagnostic changes of ischemia; frequent PACs and occasional PVCs present. FINDINGS: Raw data: There is good myocardial uptake of radiotracer. No significant motion artifacts. Zrnn-vs-ysdun ratio is 0.28 (normal is less than 0.38 for tetrafosmin tracer). Left ventricle function: Gated images demonstrate hypokinesis of the basal inferior wall and the septum. No transient ischemic dilation; TID is 0.86 (normal less than 1.3). Left ventricle resting end diastolic volume is 180 mL. Left ventricle stress ejection fraction is 48%; normal range is above 45%. Myocardial perfusion: There are moderately intense fixed basal inferior wall and moderately intense fixed basal to mid lateral wall defects suggesting prior infarction with no significant ischemia. No significant change in perfusion with prone imaging. SSS 8, SRS 9. IMPRESSION: Abnormal pharm nuclear stress test consistent with prior infarction. ==> There are moderately intense fixed basal inferior wall and moderately intense fixed basal to mid lateral wall defects suggesting prior infarction with no significant ischemia. No significant change in perfusion with prone imaging. SSS 8, SRS 9. ==> Enlarged left ventricle (resting EDV 180cc) with mildly reduced systolic function (EF post stress 48%). There is hypokinesis of the basal inferior wall and the septum. ==> Chest pain with exercise and with lexiscan. ==> No diagnostic ST changes with lexiscan or with exercise. ==> Mildly reduced exercise tolerance (7.0METs, MICAH +17%). Since only 80% of maximum predicted heart rate was reached, study was switched to lexiscan. ==> Compared to the nuclear stress test done 05/12/2021, the fixed perfusion defects described above are new on this study. Dictated by: Marti Kc MD on 10/01/2023 at 14:29 Approved by: Marti Kc MD on 10/01/2023 at 14:36
== END ==
PROVIDERS: Family Provider Family Medicine; PCP Family Medicine; Referring Provider Internal Medicine Cardiovascular Disease; Visit Provider Internal Medicine Cardiovascular Disease
DX: I25.10 Atherosclerotic heart disease of native coronary artery without angina pectoris (principal); R94.39 Abnormal result of other cardiovascular function study; Z95.5 Presence of coronary angioplasty implant and graft
CPT/HCPCS: 78452; 93017; A9502; J2785

== ENCOUNTER 2024-02-02 13:32 | Day surgery (SDC) | payer OTHER, MEDICARE, SELFPAY ==
[2024-02-02] VITALS (7 sets, daily range): BP systolic 105–164; BP diastolic 73–118; PULSE 52–82; RESP 13–25; TEMP 36.3–36.6; O2SAT 96–100
[2024-02-02] MEDS: LACTATED RINGERS 1,000 ML 42 ML IV (14:07)
--- NOTE | 2024-02-02 14:15 | P.HP_ITS ---
History of Present Illness History of Present Illness Chief complaint: Colonoscopy Narrative: Heme-positive stools and iron deficiency anemia [facility] Medical History (Updated 02/02/24 @ 14:12 by Christiana Kauffman RN) STEMI (ST elevation myocardial infarction) Hypercholesteremia HTN (hypertension) Social History Smoking Status: Former smoker Meds Home Medications and Allergies Home Medications Medication Instructions Recorded Confirmed Type atorvastatin 40 mg tablet 40 mg PO DAILY 02/02/24 02/02/24 History metoprolol tartrate 50 mg tablet 50 mg PO BID 02/02/24 02/02/24 History pantoprazole 40 mg tablet,delayed 40 mg PO BID 02/02/24 02/02/24 History release tamsulosin 0.4 mg capsule 0.4 mg PO DAILY 02/02/24 02/02/24 History Allergies Allergy/AdvReac Type Severity Reaction Status Date / Time No Known Drug Allergies Allergy Verified 06/20/20 17:49 Exam Vital Signs (past 8 hours): - 02/02/24 13:57 Temperature 97.8 F Pulse Rate 82 Respiratory Rate 16 Blood Pressure 140/82 Pulse Oximetry 99 Oxygen Delivery Method Room Air Oxygen Delivery Method Room Air Narrative Exam Narrative: Oropharynx free of lesions Chest clear to auscultation percussion Cardiac exam reveals no S3 or murmur Assessment & Plan Assessment & Plan narrative: Iron deficiency anemia and guaiac-positive stools need for colonoscopy. Risks, benefits, alternatives have been explained. Time-Based Coding :: [TOTAL MINUTES] spent with patient and on the chart (including review of chart, obtaining history, exam, reviewing outside data, placing orders, documenting exam and treatment plan, and counseling patient) on [DATE].
--- NOTE | 2024-02-02 14:17 | PM.OP.COLON ---
Operative Date/Time/Diagnoses Date of procedure: 02/02/24 Pre-op diagnosis: See indication and findings Procedure & Clinicians Study performed: Colonoscopy Indications: Iron deficiency anemia and guaiac-positive stools Surgeon: Thierry Bowers Procedure Notes Procedure in detail: After informed consent was obtained the patient was placed in left lateral decubitus position. The flexible video colonoscope was introduced the rectum slowly advanced cecum. Preparation was good. On slow withdrawal mucosa was carefully examined. The scope was removed. The patient tolerated procedure well. Blood loss none Complications none Sedation mac Findings 1. Large internal hemorrhoids 2. Otherwise completely normal colonoscopy to cecum. I would have the patient get in touch with Fabricio Villareal in our office to discuss what further workup may be necessary and to possibly include pill camera and or EGD.
== END 2024-02-02 15:20 | disposition home or self-care (01) ==
PROVIDERS: Family Provider Family Medicine; PCP Family Medicine; Referring Provider Internal Medicine Gastroenterology; Visit Provider Internal Medicine Gastroenterology
PROC: 0DJD8ZZ Inspection of Lower Intestinal Tract, Via Natural or Artificial Opening Endoscopic (ICD-10-PCS; CPT 45378; principal; 2024-02-02 14:30)
DX: D50.9 Iron deficiency anemia, unspecified (principal); R19.5 Other fecal abnormalities; K64.8 Other hemorrhoids
CPT/HCPCS: 45378; J2704